=== PATIENT | female | born 1995 | race Caucasian/White ===

== ENCOUNTER 2018-12-17 10:53 | Inpatient (IN) | payer OTHER ==
[~2018-12-17] VITALS: Ht 157.5 cm; Wt 53.5 kg
[2018-12-17] MEDS ORDERED: PRENATABS RX T1 EACH (11:06)
== END 2018-12-22 10:43 | disposition home or self-care (01) | DRG 833 ==
LOC: ER 10:53 → OB/GYN 18:59
PROVIDERS: ADMIT Obstetrics & Gynecology
PROC: BY4CZZZ Ultrasonography of Second Trimester, Single Fetus (ICD-10-PCS; principal; 2018-12-17)
PROC: 4A1HXCZ Monitoring of Products of Conception, Cardiac Rate, External Approach (ICD-10-PCS; 2018-12-17)
PROC: 8E0ZXY6 Isolation (ICD-10-PCS; 2018-12-17)
DX: O26.892 Other specified pregnancy related conditions, second trimester (principal); J10.1 Influenza due to other identified influenza virus with other respiratory manifestations; B96.0 Mycoplasma pneumoniae [M. pneumoniae] as the cause of diseases classified elsewhere; J06.9 Acute upper respiratory infection, unspecified

== ENCOUNTER 2019-04-14 16:24 | Outpatient (CLI) | payer OTHER ==
[~2019-04-14 16:24] MED LIST: PRENATABS RX T1 EACH
[2019-04-14] MEDS ORDERED: PRENATAL CAPLE1 EAC1 PO (17:28)
== END 2019-04-15 10:33 | disposition home or self-care (01) ==
LOC: OBS/DEL 16:24
DX: O60.03 Preterm labor without delivery, third trimester (principal)

== ENCOUNTER 2019-05-06 22:11 | Outpatient (CLI) | payer OTHER ==
[~2019-05-06 22:11] MED LIST changes: +PRENATAL CAPLE1 EAC1 PO
== END 2019-05-07 11:25 | disposition home or self-care (01) ==
LOC: OBS/DEL 22:11
DX: O23.33 Infections of other parts of urinary tract in pregnancy, third trimester (principal); O98.813 Other maternal infectious and parasitic diseases complicating pregnancy, third trimester; O47.03 False labor before 37 completed weeks of gestation, third trimester; B37.49 Other urogenital candidiasis

== ENCOUNTER 2019-06-14 10:21 | Inpatient (IN) | payer OTHER ==
[~2019-06-14] VITALS: Ht 157.5 cm; Wt 3.2 kg
== END 2019-06-22 11:14 | disposition home or self-care (01) | DRG 788 ==
LOC: O/R 06-20 05:05 → OB/GYN 06-20 05:05 → LDR 06-20 08:30 → OB/GYN 06-20 11:57
PROVIDERS: ADMIT Obstetrics & Gynecology
PROC: 4A1HXCZ Monitoring of Products of Conception, Cardiac Rate, External Approach (ICD-10-PCS; 2019-06-20)
PROC: 10D00Z1 Extraction of Products of Conception, Low, Open Approach (ICD-10-PCS; principal; 2019-06-20 08:30)
DX: O82 Encounter for cesarean delivery without indication (principal); O64.1XX0 Obstructed labor due to breech presentation, not applicable or unspecified; Z3A.39 39 weeks gestation of pregnancy; Z37.0 Single live birth

== ENCOUNTER 2023-10-29 16:16 | Outpatient (CLI) | payer OTHER ==
[2023-10-29] MEDS ORDERED: CEFAZOLIN SODIUM 1,000 MG VIAL IV SCH (16:27)
[2023-10-29] MEDS ORDERED: TERBUTALINE SULFATE 1 MG/ML AMPUL SUBCUTANEO ONE (16:30)
[2023-10-29] MEDS ORDERED: RINGERS SOLUTION,LACTATED 1,000 ML IV SCH (16:30)
[2023-10-29] MEDS ORDERED: CEFAZOLIN SODIUM 1,000 MG VIAL IV ONE (16:30)
[2023-10-29] MEDS ORDERED: IRON240 MG (16:36)
[2023-10-29 16:45] LABS: URINE APPEARANCE Clear; URINE BILIRRUBIN Negative (NEGATIVE); URINE BLOOD Small; URINE COLOR Yellow; URINE GLUCOSE Negative (NEGATIVE); URINE LEUKOCYTE Negative; URINE NITRATE Negative; URINE PROTEIN Negative (NEGATIVE)
[2023-10-29] MEDS ORDERED: ACETAMINOPHEN 500 MG GEL..CAP PO PRN (16:45)
[2023-10-29 16:48] LABS: HEMATOCRIT 30.8 % (36.0-45.00); HEMOGLOBIN 10.4 g/dL (12.0-15.00); MEAN CELL VOLUME 86.7 fL (80.00-100.00); MEAN CORPUSCULAR HEMOGLOBIN 29.3 pg (27.00-32.0); MEAN CORPUSCULAR HGB CONC 33.8 g/dl (32.0-36.0); PLATELET COUNT 270 K/uL (150-450); RED BLOOD COUNT 3.56 M/uL (4.00-6.00)
[2023-10-29 16:49] LABS: URINE BACTERIA 2697.5 uL (0.0-1933); URINE EPITHELIAL CELLS 29.6 uL (0.0-38.8); URINE RBC 30.8 uL (0.0-20.8); URINE WBC 13.9 uL (0.0-23.2)
[2023-10-29 17:12] LABS: ALBUMIN 2.5 gm/dL (3.4-5.0); BILIRUBIN TOTAL 0.32 mg/dL (0.3-1.2); CALCIUM 8.7 mg/dL (8.5-10.1); CREATININE SERUM 0.42 mg/dL (0.55-1.02); GFR 180.98; GLOBULINA 3.8 G/DL (2.4-3.5); POTASSIUM 4.04 mEq/L (3.5-5.1); TOTAL PROTEIN 6.3 gm/dL (6.4-8.2)
[2023-10-30] MEDS ORDERED: CEFUROXIME500 MG PO (06:36)
== END 2023-10-30 10:21 | disposition home or self-care (01) ==
LOC: OBS/DEL 16:16
PROVIDERS: ATTEND Specialist
DX: O23.43 Unspecified infection of urinary tract in pregnancy, third trimester (principal); N39.0 Urinary tract infection, site not specified; Z3A.33 33 weeks gestation of pregnancy; R10.2 Pelvic and perineal pain